=== PATIENT | female | born 1940 | race Caucasian/White ===

== ENCOUNTER 2019-03-18 09:46 | Inpatient (IN) | payer MEDICARE, OTHER ==
[~2019-03-18] VITALS: Ht 165.1 cm; Wt 96.3 kg
[2019-03-18] MEDS ORDERED: MACROBID100 MG ORAL (10:24)
[2019-03-18] MEDS ORDERED: COREG CR80 MG ORAL (10:24)
[2019-03-18] MEDS ORDERED: ACTOS45 MG ORAL (10:24)
[2019-03-18] MEDS ORDERED: LANTUS SOL100 UNIT/1 SUBQ (10:24)
[2019-03-18 10:42] LABS: APPEARANCE,URINE VERY CLOUDY; BILIRUBIN, URINE NEGATIVE (NEGATIVE); COLOR,URINE RED; GLUCOSE, URINE (UA) NEGATIVE (NEGATIVE); KETONES,URINE 1+ (NEGATIVE); LEUKOCYTE ESTERASE ,URINE 3+ (NEGATIVE); NITRITE,URINE NEGATIVE (NEGATIVE); PH,URINE 6.5 (4.5-8.0); PROTEIN,URINE 4+ (NEGATIVE); UROBILINOGEN,URINE NORMAL MG/DL (0.0-1.0)
[2019-03-18 11:49] LABS: BASOPHILS % (AUTO) 0.4 % (0.0-2.0); EOSINOPHILS % (AUTO) 0.6 % (0.0-3.0); HEMATOCRIT 25.5 % (37.0-47.0); HEMOGLOBIN 8.2 G/DL (12.0-16.0); LYMPHOCYTES % (AUTO) 32.3 % (20.0-45.0); MEAN CORPUSCULAR VOLUME 99 FL (80-99); NEUTROPHILS % (AUTO) 60.7 % (45.0-75.0); PLATELET COUNT 277 K/UL (150-450); RED BLOOD COUNT 2.59 M/UL (4.20-5.40); WHITE BLOOD COUNT 9.7 K/UL (4.8-10.8)
[2019-03-18 12:03] LABS: ANION GAP 9 mmol/L (5-15); BLOOD UREA NITROGEN 35 mg/dL (7-18); CALCIUM 9.2 MG/DL (8.5-10.1); CARBON DIOXIDE 24 MMOL/L (21-32); CHLORIDE 107 MMOL/L (98-107); CREATININE 2.3 MG/DL (0.55-1.30); POTASSIUM 4.4 MMOL/L (3.5-5.1); SODIUM 140 MMOL/L (136-145)
[2019-03-18 12:07] LABS: ALANINE AMINOTRANSFERASE 16 U/L (12-78); ALBUMIN 3.2 G/DL (3.4-5.0); ALBUMIN/GLOBULIN RATIO 0.7 (1.0-2.7); ALKALINE PHOSPHATASE 57 U/L (46-116); ASPARTATE AMINO TRANSFERASE 11 U/L (15-37); BILIRUBIN,TOTAL 0.3 MG/DL (0.2-1.0)
[2019-03-18 13:20] VITALS: BP 154/46
[2019-03-18 14:55] VITALS: BP 139/66
--- NOTE | 2019-03-18 15:06 | Emergency Room Report ---
History of Present Illness General Chief Complaint: Female Urogenital Problems Source: Patient Present Illness Allergies: Coded Allergies: No Known Allergies (Unverified , 03/18/19) Nursing Documentation-[facility] Past Medical History: No History, Except For Hx Hypertension: Yes Hx Diabetes: Yes Hx Neurological Problems: Yes - parkinson Physical Exam Vital Signs Date Time Temp Pulse Resp B/P (MAP) Pulse Ox O2 Delivery O2 Flow Rate FiO2 03/18/19 09:50 97.9 79 17 185/80 (115) 95 Room Air Medical Decision Making Diagnostic Impression: Primary Impression: Hematuria Additional Impressions: Urinary retention UTI (urinary tract infection) Bladder tumor MINDY (acute kidney injury) Anemia Laboratory Tests Test 03/18/19 10:15 03/18/19 11:20 Urine Color Red Urine Appearance Very cloudy Urine pH 6.5 (4.5-8.0) Urine Specific [place] 1.010 (1.005-1.035) Urine Protein 4+ (NEGATIVE) H Urine Glucose (UA) Negative (NEGATIVE) Urine Ketones 1+ (NEGATIVE) H Urine Blood 5+ (NEGATIVE) H Urine Nitrite Negative (NEGATIVE) Urine Bilirubin Negative (NEGATIVE) Urine Urobilinogen Normal MG/DL (0.0-1.0) Urine Leukocyte Esterase 3+ (NEGATIVE) H Urine RBC Tntc /HPF (0 - 2) H Urine WBC 30-40 /HPF (0 - 2) H Urine Squamous Epithelial Cells Few /LPF (NONE/OCC) Urine Bacteria Few /HPF (NONE) White Blood Count 9.7 K/UL (4.8-10.8) Red Blood Count 2.59 M/UL (4.20-5.40) L Hemoglobin 8.2 G/DL (12.0-16.0) L Hematocrit 25.5 % (37.0-47.0) L Mean Corpuscular Volume 99 FL (80-99) Mean Corpuscular Hemoglobin 31.8 PG (27.0-31.0) H Mean Corpuscular Hemoglobin Concent 32.3 G/DL (32.0-36.0) Red Cell Distribution Width 13.0 % (11.6-14.8) Platelet Count 277 K/UL (150-450) Mean Platelet Volume 10.4 FL (6.5-10.1) H Neutrophils (%) (Auto) 60.7 % (45.0-75.0) Lymphocytes (%) (Auto) 32.3 % (20.0-45.0) Monocytes (%) (Auto) 6.0 % (1.0-10.0) Eosinophils (%) (Auto) 0.6 % (0.0-3.0) Basophils (%) (Auto) 0.4 % (0.0-2.0) Prothrombin Time 10.5 SEC (9.30-11.50) Prothrombin Time INR 1.0 (0.9-1.1) PTT 25 SEC (23-33) Sodium Level 140 MMOL/L (136-145) Potassium Level 4.4 MMOL/L (3.5-5.1) Chloride Level 107 MMOL/L (98-107) Carbon Dioxide Level 24 MMOL/L (21-32) Anion Gap 9 mmol/L (5-15) Blood Urea Nitrogen 35 mg/dL (7-18) H Creatinine 2.3 MG/DL (0.55-1.30) H Estimate Glomerular Filtration Rate mL/min (>60) Glucose Level 127 MG/DL (74-106) H Calcium Level 9.2 MG/DL (8.5-10.1) Total Bilirubin 0.3 MG/DL (0.2-1.0) Aspartate Amino Transferase (AST) 11 U/L (15-37) L Alanine Aminotransferase (ALT) 16 U/L (12-78) Alkaline Phosphatase 57 U/L (46-116) Total Protein 7.5 G/DL (6.4-8.2) Albumin 3.2 G/DL (3.4-5.0) L Globulin 4.3 g/dL Albumin/Globulin Ratio 0.7 (1.0-2.7) L Last Vital Signs Date Time Temp Pulse Resp B/P (MAP) Pulse Ox O2 Delivery O2 Flow Rate FiO2 03/18/19 14:55 97.9 81 18 139/66 96 Room Air Referrals: NON PHYSICIAN (PCP) Roberta Loving DO Mar 18, 2019 15:06
[2019-03-18] MEDS ORDERED: cefTRIAXone 1 GM in D5W 55 ML IVPB ONE (15:15)
[2019-03-18 16:00] VITALS: BP 143/56
[2019-03-18 18:36] LABS: HEMATOCRIT 23.5 % (37.0-47.0); HEMOGLOBIN 7.9 G/DL (12.0-16.0); MEAN CORPUSCULAR VOLUME 98 FL (80-99); PLATELET COUNT 277 K/UL (150-450); RED BLOOD COUNT 2.39 M/UL (4.20-5.40); RED CELL DISTRIBUTION WIDTH 12.6 % (11.6-14.8); WHITE BLOOD COUNT 10.1 K/UL (4.8-10.8)
[2019-03-18] MEDS: Levemir Flexpen SUBQ SCH (21:00)
[2019-03-18] MEDS: NovoLOG Insulin Flexpen SUBQ SCH (21:00)
[2019-03-18] MEDS: Carvedilol 6.25mg Tab ORAL SCH (22:07)
[2019-03-19] MEDS ORDERED: NovoLOG Insulin Flexpen SUBQ SCH (06:30)
[2019-03-19] MEDS: NovoLOG Insulin Flexpen SUBQ SCH ×4 (06:30→20:55)
[2019-03-19 07:22] LABS: HEMATOCRIT 22.8 % (37.0-47.0); HEMOGLOBIN 7.5 G/DL (12.0-16.0); MEAN CORPUSCULAR VOLUME 98 FL (80-99); PLATELET COUNT 268 K/UL (150-450); RED BLOOD COUNT 2.32 M/UL (4.20-5.40); RED CELL DISTRIBUTION WIDTH 12.7 % (11.6-14.8); WHITE BLOOD COUNT 8.2 K/UL (4.8-10.8)
[2019-03-19 07:37] LABS: % IRON SATURATION 47 % (15-50); IRON 80 ug/dL (50-175); TOTAL IRON BINDING CAPACITY 170 ug/dL (250-450)
[2019-03-19 07:47] LABS: ALANINE AMINOTRANSFERASE 14 U/L (12-78); ALBUMIN 2.9 G/DL (3.4-5.0); ALBUMIN/GLOBULIN RATIO 0.7 (1.0-2.7); ALKALINE PHOSPHATASE 50 U/L (46-116); ANION GAP 11 mmol/L (5-15); ASPARTATE AMINO TRANSFERASE 9 U/L (15-37); BILIRUBIN,TOTAL 0.3 MG/DL (0.2-1.0); BLOOD UREA NITROGEN 31 mg/dL (7-18); CALCIUM 8.7 MG/DL (8.5-10.1); CARBON DIOXIDE 23 MMOL/L (21-32); CHLORIDE 109 MMOL/L (98-107); CREATININE 2.3 MG/DL (0.55-1.30); POTASSIUM 3.8 MMOL/L (3.5-5.1); SODIUM 143 MMOL/L (136-145)
[2019-03-19 08:00] VITALS: BP 145/68
[2019-03-19] MEDS: Carvedilol 6.25mg Tab ORAL SCH ×2 (09:35→20:45)
[2019-03-19 12:00] VITALS: BP 130/50
--- NOTE | 2019-03-19 13:00 | Consultation ---
DATE OF CONSULTATION: 03/19/2019 UROLOGY CONSULTATION ATTENDING/CONSULTING PHYSICIAN: Lopez Montalvo M.D. CHIEF COMPLAINT/HISTORY OF PRESENT ILLNESS: I was asked by Dr. Montalvo to evaluate this 78-year-old female regarding history of gross hematuria. Briefly, the patient has a history of gross hematuria, was started earlier in the week. She apparently saw Dr. Perea, for evaluation of the same and a Hernandez catheter was placed. The next day, the hematuria was continuous and as such, the patient proceeded to the emergency room here as Dr. Perea had instructed her to do so at their meeting. Dr. Perea has been out of town and unavailable and as such, I was asked to evaluate the patient. PAST MEDICAL HISTORY: 1. Hypertension. 2. Diabetes. 3. Hypothyroidism. 4. Parkinson disease. 5. Uterine fibroids. 6. Glaucoma. PAST SURGICAL HISTORY: 1. Uterine surgery for fibroids, NOS. 2. Glaucoma, eye surgery, NOS. MEDICATIONS: Please see the chart for current medications administration details. Briefly, the patient has been placed on ceftriaxone for antibiotic coverage. ALLERGIES: No known drug allergies. SOCIAL HISTORY: Unremarkable for tobacco, alcohol, or drug use. FAMILY HISTORY: Noncontributory. REVIEW OF SYSTEMS: A 14-system review of systems essentially unremarkable outside what is described above. PHYSICAL EXAMINATION: GENERAL: The patient is an elderly Romansh female, awake, alert, oriented x4, pleasant, no obvious distress. HEENT: NC/AT. EOMI. Oropharynx clear. NECK: Supple. CHEST: Within normal limits. ABDOMEN: Soft, obese, nontender, nondistended. EXTREMITIES: Warm and well perfused. No cyanosis, clubbing, or edema. BACK: No CVA tenderness to percussion. NEUROLOGIC: Grossly nonfocal. GENITOURINARY: Reveals a Hernandez catheter in place with bloody urine output. LABORATORY DATA: Sodium 143, potassium 3.8, chloride 109, bicarbonate 23, BUN 31, creatinine 2.3, glucose 117, calcium 8.7. LFTs within normal limits. PT 10.5, INR 1.0, PTT 25. White blood cell count 8.2, hematocrit 23, platelets 268. Urinalysis, specific gravity 1.010, pH 6.5. Dip test notable for 4+ protein, 1+ ketones, 5+ occult blood, and 3+ leukocyte esterase. Microanalysis with too numerous to count red and 30 to 40 white blood cells per high-power field and few bacteria seen. Urine culture, no growth preliminarily. Diagnostic imaging, none. ASSESSMENT AND PLAN: In summary, the patient is an 78-year-old female with a history of gross hematuria over the last several days. Physical exam reveals the same. Laboratory data is essentially unremarkable and urine culture is negative so far. She has been started on ceftriaxone for antibiotic coverage. There is no relevant diagnostic imaging. I am going to continue the patient on antibiotics for the time being. Additionally, I will order a noncontrast CT scan of the abdomen and pelvis. Due to the patient's renal insufficiency, this will help us to hopefully evaluate for potential source of the hematuria. Dr. Perea returns tomorrow and can resume care of the patient from that point. Thank you for allowing me to participate in the care of this nice lady. Please do not hesitate to contact me for any questions that you may further have regarding her care. I will see her with you as needed. Sarkis Paniagua M.D. DR: KIAN JOB#: [id number] CC:
--- NOTE | 2019-03-19 14:28 | Diagnostic Imaging Report ---
EXAM: CT Abdomen and Pelvis Without Intravenous Contrast CLINICAL HISTORY: BLD TECHNIQUE: Axial computed tomography images of the abdomen and pelvis without intravenous contrast. CTDI is 19.07 mGy and DLP is 1093 mGy-cm. One or more of the following dose reduction techniques were used: automated exposure control, adjustment of the mA and/or kV according to patient size, use of iterative reconstruction technique. COMPARISON: No relevant prior studies available. FINDINGS: Lung bases: 4 mm nodule right middle lobe. Heart: Cardiomegaly. ABDOMEN: Liver: Unremarkable Gallbladder and bile ducts: No calcified stones. No ductal dilation. Pancreas: Unremarkable. Spleen: Unremarkable. Adrenals: Unremarkable. Kidneys and ureters: Dilatation of the renal collecting systems and ureters. Low attenuation focus in the right kidney measuring 2.2 cm. Stomach and bowel: Colonic diverticula. PELVIS: Appendix: No findings to suggest acute appendicitis. Bladder: Under distended and thickened, irregular bladder with underlying mass lesion and/or hemorrhage/debris. Hernandez catheter. Reproductive: Unremarkable. ABDOMEN and PELVIS: Intraperitoneal space: Unremarkable. Bones/joints: No acute fracture. Soft tissues: Subcutaneous edema in the back. Vasculature: Unremarkable. No abdominal aortic aneurysm. Lymph nodes: No enlarged lymph nodes. IMPRESSION: Under distended and thickened, irregular bladder with underlying mass lesion and/or hemorrhage/debris. Further evaluation needed.
[2019-03-19] MEDS: cefTRIAXone 1 GM in D5W 55 ML IVPB SCH (15:11)
--- NOTE | 2019-03-19 16:09 | Consultation ---
Consult Note Consult Note asked to eval at the request of Dr Montalvo interviewed examined discussed with RN admitted from ER after was presented with Hematuria feels weak has chang chang bag bloody urine . Assessment/Plan Renal failure, Acute vs Chronic Hematuria Urinary retention UTI (urinary tract infection) Bladder tumor Anemia Uro eval Transfuse Kidney KATHI per orders Kasi Powell MD Mar 19, 2019 16:09
[2019-03-19] MEDS: Docusate 100mg cap ORAL SCH (17:48)
[2019-03-19 20:00] VITALS: BP 164/61
--- NOTE | 2019-03-19 20:17 | Diagnostic Imaging Report ---
EXAM: US Retroperitoneal Complete, Renal CLINICAL HISTORY: RENAL-A TECHNIQUE: Real-time ultrasound of the retroperitoneum (complete) with image documentation. COMPARISON: CT scan 03/19/19 FINDINGS: Right kidney: 13.0 x 4.6 x 6.7 cm. Marked hydronephrosis without evidence of renal calculi. Left kidney: 12.8 x 5.1 x 6.2 cm. No hydronephrosis. Bladder: The bladder is incompletely distended with a Hernandez catheter within. The bladder is not adequately evaluated. The bladder should be evaluated with a full bladder on ultrasound. Alternatively cystoscopy recommended. IMPRESSION: Bilateral hydronephrosis as seen on the CT with no evidence for renal calculi The bladder is not adequately evaluated. The bladder needs to be evaluated with a full bladder on ultrasound. Alternatively cystoscopy is recommended
[2019-03-19] MEDS: Levemir Flexpen SUBQ SCH (20:55)
[2019-03-19] MEDS ORDERED: Vitamin B12 1000mcg/ml Inj IM ONE (22:00)
--- NOTE | 2019-03-19 22:45 | History and Physical Report ---
DATE OF ADMISSION: 03/18/2019 REASON FOR ADMISSION: Jerson hematuria with severe anemia. HISTORY OF PRESENT ILLNESS: This pleasant [place]ij[place] female, was seen by her urologist several days ago and noted to have hematuria. A catheter was placed and further diagnostic studies planed. Today, she came to the emergency room because of worsening hematuria that has been unremitting. She has not had any nausea, vomiting, or abdominal pain. No dizziness. Because of the severity of her anemia, hospitalization is being initiated. PAST MEDICAL HISTORY: Includes hypertension, type 2 diabetes mellitus, history of uterine fibroids, Parkinson disease, hypothyroidism, glaucoma, status post myomectomy. MEDICATIONS: Prior to admission, reviewed and reconciled. ALLERGIES: None known. SOCIAL HISTORY: Negative for smoking, alcohol, or substance abuse. FAMILY HISTORY: Noncontributory. REVIEW OF SYSTEMS: No fevers or chills. No dysuria or abdominal pain. No history of asthma or abnormal blood clotting. No history of heart failure, heart attack, or irregular heart beat. No history of seizure or stroke. Her diabetes is managed with oral therapy. She is on thyroid replacement. She does not recall her cholesterol level. She does not take any medications for Parkinson at this time. The diagnosis is not clear. PHYSICAL EXAMINATION: GENERAL: Moderately obese, no acute distress. VITAL SIGNS: Blood pressure 139/66, pulse 81, respiratory rate 18, afebrile, and room air oxygen saturation 96%. HEENT: Conjunctivae pink. Sclerae are anicteric. Oropharynx clear. Mucous membranes moist. NECK: Supple. Jugular venous pressure normal. LUNGS: Clear. No breast masses. CARDIAC: Regular rhythm and rate. Normal S1 and S2 with no murmur. There is a fourth heart sound. ABDOMEN: Soft and nontender. No guarding. No rebound. Hernandez catheter is draining red urine. EXTREMITIES: Without clubbing, cyanosis, or edema. NEUROLOGIC: Nonfocal with no obvious tremor. LABORATORY DATA: Sodium 140, potassium 4.4, bicarbonate 24, BUN 35, creatinine 2.3, and glucose 127. White count 9.7, hemoglobin 8.2, and platelet count is 277,000. EKG with sinus rhythm and no acute ____ abnormalities. A CAT scan of the abdomen and pelvis was performed and notable for bladder mass with distended irregular bladder wall. IMPRESSION: 1. Severe anemia due to hematuria. 2. Bladder mass, possible tumor. 3. Renal failure, acute versus chronic. 4. History of type 2 diabetes mellitus. 5. History of hypertension. PLAN: 1. Inpatient hospital stay. 2. Hydration. 3. Hernandez catheter. 4. Serial hemoglobin, transfuse if less than 8 g with ongoing bleeding. 5. Nasal oxygen. 6. Renal ultrasound. 7. Follow up renal studies, metabolic profile, iron panel, urologic followup, and chest x-ray. 8. Insulin coverage by sliding scale. Lopez Mnotalvo M.D. DR: ESTEPHANIA JOB#: [id number] CC:
--- NOTE | 2019-03-19 22:45 | Progress Note ---
DATE: 03/19/2019 INTERNAL MEDICINE PROGRESS NOTE SUBJECTIVE: The patient with no complaints. Denies nausea, vomiting, or abdominal pain. She continues to have hematuria. Urologic consultation was noted. She remains on IV fluids. OBJECTIVE: VITAL SIGNS: Blood pressure 130/50, heart rate 83, respiratory rate 18, temperature 99.3. NECK: Supple. CARDIAC: Regular. Normal S1, S2 with no new murmur. LUNGS: Clear. ABDOMEN: Soft, nontender. EXTREMITIES: No edema. LABORATORY DATA: White count 8.2, hemoglobin 7.5. BUN 31, creatinine 2.3. B12 of 223. Iron panel normal. IMPRESSION: 1. Hematuria. 2. Bladder mass. 3. Severe anemia. 4. Moderate protein-calorie malnutrition. 5. B12 deficiency. 6. Low TSH suggestive of abnormal thyroid function. 7. History of diabetes mellitus. 8. Renal failure, unchanged with hydration. PLAN: 1. Continue cautious hydration. 2. Renal consult. 3. Transfuse packed red blood cells. 4. B12 supplement. 5. Protein supplement. 6. DVT prophylaxis with SCDs. 7. Await urologic intervention for diagnostic tissue. Lopez Montalvo M.D. : Marianela JOB#: [id number] CC:
[2019-03-20] VITALS: BP 144/60
[2019-03-20 04:00] VITALS: BP 158/67
[2019-03-20] MEDS: NovoLOG Insulin Flexpen SUBQ SCH ×4 (06:30→20:51)
[2019-03-20 07:53] LABS: BASOPHILS % (AUTO) 0.7 % (0.0-2.0); EOSINOPHILS % (AUTO) 2.5 % (0.0-3.0); HEMOGLOBIN 8.8 G/DL (12.0-16.0); LYMPHOCYTES % (AUTO) 40.1 % (20.0-45.0); MEAN CORPUSCULAR VOLUME 96 FL (80-99); NEUTROPHILS % (AUTO) 51.6 % (45.0-75.0); PLATELET COUNT 257 K/UL (150-450); RED BLOOD COUNT 2.69 M/UL (4.20-5.40); RED CELL DISTRIBUTION WIDTH 13.6 % (11.6-14.8); WHITE BLOOD COUNT 8.8 K/UL (4.8-10.8)
[2019-03-20 08:00] VITALS: BP 169/69
[2019-03-20] MEDS: Docusate 100mg cap ORAL SCH ×2 (08:37→17:12)
[2019-03-20] MEDS: Carvedilol 6.25mg Tab ORAL SCH (08:38)
[2019-03-20 09:15] LABS: ALANINE AMINOTRANSFERASE 13 U/L (12-78); ALBUMIN 2.9 G/DL (3.4-5.0); ALBUMIN/GLOBULIN RATIO 0.7 (1.0-2.7); ALKALINE PHOSPHATASE 50 U/L (46-116); ANION GAP 10 mmol/L (5-15); ASPARTATE AMINO TRANSFERASE 10 U/L (15-37); BILIRUBIN,TOTAL 0.3 MG/DL (0.2-1.0); BLOOD UREA NITROGEN 26 mg/dL (7-18); CALCIUM 8.7 MG/DL (8.5-10.1); CARBON DIOXIDE 24 MMOL/L (21-32); CHLORIDE 111 MMOL/L (98-107); CREATININE 2.1 MG/DL (0.55-1.30); PHOSPHORUS 4.2 MG/DL (2.5-4.9); POTASSIUM 3.7 MMOL/L (3.5-5.1); SODIUM 145 MMOL/L (136-145)
--- NOTE | 2019-03-20 09:15 | Diagnostic Imaging Report ---
EXAM: XR Chest, 2 Views CLINICAL HISTORY: TACHYP TECHNIQUE: Frontal and lateral views of the chest. COMPARISON: No relevant prior studies available. FINDINGS: Lungs: Hypoventilatory lungs. Mild interstitial prominence. No consolidation. Pleural space: Unremarkable. No pneumothorax. Heart: Heart size upper limits normal. Mediastinum: Unremarkable. Bones/joints: Unremarkable. IMPRESSION: Hypoventilatory lungs. Mild interstitial prominence.
[2019-03-20 12:00] VITALS: BP 111/67
[2019-03-20] MEDS ORDERED: Lisinopril 10mg tab ORAL SCH (13:15)
[2019-03-20] MEDS ORDERED: HydrALAZINE 25mg tab ORAL PRN (13:30)
--- NOTE | 2019-03-20 13:30 | Nephrology Progress Note ---
Assessment/Plan Problem List: (1) Renal failure (ARF), acute on chronic (2) Diabetic nephropathy (3) Bladder tumor (4) Hematuria (5) Anemia (6) Urinary retention (7) Elevated troponin I level Assessment Renal failure, Acute vs Chronic Hematuria Urinary retention UTI (urinary tract infection) Bladder tumor Anemia Plan Transfused- Cr lower- Uro eval noted Kidney KATHI noted per orders start Lopressor and Norvasc and PRN Hydralazine Hold Lisinopril in view of elevated Cr KATHI: Bilateral hydronephrosis as seen on the CT with no evidence for renal calculi The bladder is not adequately evaluated. The bladder needs to be evaluated with a full bladder on ultrasound. Alternatively cystoscopy is recommended Subjective ROS Limited/Unobtainable: No Constitutional: Reports: malaise Objective Objective Last 24 Hour Vital Signs Date Time Temp Pulse Resp B/P (MAP) Pulse Ox O2 Delivery O2 Flow Rate FiO2 03/20/19 12:00 97.5 78 18 111/67 (82) 96 03/20/19 12:00 Room Air 03/20/19 08:38 75 169/69 03/20/19 08:00 Room Air 03/20/19 08:00 97.7 75 20 169/69 (102) 96 03/20/19 04:00 Room Air 03/20/19 04:00 98.4 72 18 158/67 (97) 95 03/20/19 00:00 Room Air 03/20/19 00:00 98.4 76 18 144/60 (88) 96 03/19/19 20:45 84 164/61 03/19/19 20:00 Room Air 03/19/19 20:00 97.2 84 18 164/61 (95) 95 03/19/19 16:00 Room Air Intake and Output 03/19/19 03/20/19 19:00 07:00 Intake Total 1590 ml 500 ml Output Total 2200 ml Balance -610 ml 500 ml Intake Oral 480 ml IV Total 1110 ml 500 ml Output Urine Total 2200 ml # Voids 2 # Bowel Movements 1 Laboratory Tests 03/20/19 06:32: White Blood Count 8.8, Red Blood Count 2.69L, Hemoglobin 8.8L, Hematocrit 26.0L , Mean Corpuscular Volume 96, Mean Corpuscular Hemoglobin 32.7H, Mean Corpuscular Hemoglobin Concent 33.9, Red Cell Distribution Width 13.6, Platelet Count 257, Mean Platelet Volume 10.5H, Neutrophils (%) (Auto) 51.6, Lymphocytes (%) (Auto) 40.1, Monocytes (%) (Auto) 5.0, Eosinophils (%) (Auto) 2.5, Basophils (%) (Auto) 0.7, Sodium Level 145, Potassium Level 3.7, Chloride Level 111H, Carbon Dioxide Level 24, Anion Gap 10, Blood Urea Nitrogen 26H, Creatinine 2.1H, Estimat Glomerular Filtration Rate , Glucose Level 83, Uric Acid 5.4, Calcium Level 8.7, Phosphorus Level 4.2, Magnesium Level 1.6L, Total Bilirubin 0.3, Aspartate Amino Transf (AST/SGOT) 10L, Alanine Aminotransferase ( ALT/SGPT) 13, Alkaline Phosphatase 50, C-Reactive Protein, Quantitative 0.7, Pro -B-Type Natriuretic Peptide 1011H, Total Protein 7.1, Albumin 2.9L, Globulin 4.2 , Albumin/Globulin Ratio 0.7L, Thyroid Stimulating Hormone (TSH) 0.139L Height (Feet): 5 Height (Inches): 5.00 Weight (Pounds): 202 General Appearance: no apparent distress Cardiovascular: normal rate Respiratory/Chest: decreased breath sounds Abdomen: distended Genitourinary/Rectal: other - chang ...Bag... Bloody Kasi Powell MD Mar 20, 2019 13:30
[2019-03-20] MEDS ORDERED: Vitamin B12 1000mcg/ml Inj SUBQ SCH (14:00)
[2019-03-20] MEDS: cefTRIAXone 1 GM in D5W 55 ML IVPB SCH (16:55)
[2019-03-20] MEDS: Metoprolol 25mg tab ORAL SCH (20:50)
[2019-03-20] MEDS: Levemir Flexpen SUBQ SCH (20:52)
[2019-03-21] VITALS: BP 148/53
[2019-03-21 04:00] VITALS: BP 155/73
[2019-03-21] MEDS: NovoLOG Insulin Flexpen SUBQ SCH ×4 (06:20→21:23)
[2019-03-21 07:11] LABS: BASOPHILS % (AUTO) 0.6 % (0.0-2.0); EOSINOPHILS % (AUTO) 2.2 % (0.0-3.0); HEMATOCRIT 27.3 % (37.0-47.0); HEMOGLOBIN 9.1 G/DL (12.0-16.0); LYMPHOCYTES % (AUTO) 40.6 % (20.0-45.0); MEAN CORPUSCULAR VOLUME 97 FL (80-99); MONOCYTES % (AUTO) 4.5 % (1.0-10.0); NEUTROPHILS % (AUTO) 52.2 % (45.0-75.0); PLATELET COUNT 262 K/UL (150-450); RED BLOOD COUNT 2.82 M/UL (4.20-5.40); RED CELL DISTRIBUTION WIDTH 12.9 % (11.6-14.8); WHITE BLOOD COUNT 9.7 K/UL (4.8-10.8)
[2019-03-21 07:37] LABS: ALANINE AMINOTRANSFERASE 16 U/L (12-78); ALBUMIN 2.9 G/DL (3.4-5.0); ALBUMIN/GLOBULIN RATIO 0.7 (1.0-2.7); ALKALINE PHOSPHATASE 51 U/L (46-116); ANION GAP 11 mmol/L (5-15); ASPARTATE AMINO TRANSFERASE 12 U/L (15-37); BILIRUBIN,TOTAL 0.3 MG/DL (0.2-1.0); BLOOD UREA NITROGEN 23 mg/dL (7-18); CALCIUM 8.9 MG/DL (8.5-10.1); CARBON DIOXIDE 24 MMOL/L (21-32); CHLORIDE 108 MMOL/L (98-107); POTASSIUM 3.7 MMOL/L (3.5-5.1); SODIUM 143 MMOL/L (136-145)
[2019-03-21 07:44] LABS: CHOLESTEROL 184 MG/DL (< 200); HDL CHOLESTEROL 32 MG/DL (40-60); PHOSPHORUS 4.2 MG/DL (2.5-4.9); TRIGLYCERIDES 110 MG/DL (30-150)
[2019-03-21 08:00] VITALS: BP 157/69
[2019-03-21] MEDS: Metoprolol 25mg tab ORAL SCH ×2 (08:37→21:19)
[2019-03-21] MEDS: Docusate 100mg cap ORAL SCH ×3 (08:40→17:45)
[2019-03-21] MEDS ORDERED: Lisinopril 10mg tab ORAL SCH (09:00)
[2019-03-21 11:56] VITALS: BP 155/62
--- NOTE | 2019-03-21 13:43 | Nephrology Progress Note ---
Assessment/Plan Problem List: (1) Renal failure (ARF), acute on chronic (2) Diabetic nephropathy (3) Bladder tumor (4) Hematuria (5) Anemia (6) Urinary retention (7) Elevated troponin I level Assessment Renal failure, Acute vs Chronic Hematuria Urinary retention UTI (urinary tract infection) Bladder tumor Anemia Plan Transfused- Cr lower- Uro eval noted Kidney KATHI noted per orders start Lopressor and Norvasc and PRN Hydralazine Hold Lisinopril in view of elevated Cr- adjust BP meds KATHI: Bilateral hydronephrosis as seen on the CT with no evidence for renal calculi The bladder is not adequately evaluated. The bladder needs to be evaluated with a full bladder on ultrasound. Alternatively cystoscopy is recommended Subjective ROS Limited/Unobtainable: No Constitutional: Reports: malaise Objective Objective Last 24 Hour Vital Signs Date Time Temp Pulse Resp B/P (MAP) Pulse Ox O2 Delivery O2 Flow Rate FiO2 03/21/19 11:56 98.1 68 18 155/62 (93) 96 03/21/19 09:00 Room Air 03/21/19 08:37 72 157/69 03/21/19 08:37 72 157/69 03/21/19 08:00 98.1 72 18 157/69 (98) 99 03/21/19 04:00 97.8 73 18 155/73 (100) 94 03/21/19 00:00 97.2 73 18 148/53 (84) 94 03/20/19 21:00 Room Air 03/20/19 20:50 72 151/53 03/20/19 16:00 Room Air 03/20/19 14:31 75 129/69 03/20/19 13:56 111/67 Intake and Output 03/20/19 03/21/19 19:00 07:00 Intake Total 1520 ml 240 ml Output Total 1000 ml 2050 ml Balance 520 ml -1810 ml Intake Oral 360 ml 240 ml IV Total 1160 ml Output Urine Total 1000 ml 2050 ml Laboratory Tests 03/21/19 06:03: White Blood Count 9.7, Red Blood Count 2.82L, Hemoglobin 9.1L, Hematocrit 27.3L , Mean Corpuscular Volume 97, Mean Corpuscular Hemoglobin 32.2H, Mean Corpuscular Hemoglobin Concent 33.3, Red Cell Distribution Width 12.9, Platelet Count 262, Mean Platelet Volume 10.9H, Neutrophils (%) (Auto) 52.2, Lymphocytes (%) (Auto) 40.6, Monocytes (%) (Auto) 4.5, Eosinophils (%) (Auto) 2.2, Basophils (%) (Auto) 0.6, Sodium Level 143, Potassium Level 3.7, Chloride Level 108H, Carbon Dioxide Level 24, Anion Gap 11, Blood Urea Nitrogen 23H, Creatinine 2.0H, Estimat Glomerular Filtration Rate , Glucose Level 97, Uric Acid 5.5, Calcium Level 8.9, Phosphorus Level 4.2, Magnesium Level 1.9, Total Bilirubin 0.3, Aspartate Amino Transf (AST/SGOT) 12L, Alanine Aminotransferase ( ALT/SGPT) 16, Alkaline Phosphatase 51, Total Protein 7.1, Albumin 2.9L, Globulin 4.2, Albumin/Globulin Ratio 0.7L, Triglycerides Level 110, Cholesterol Level 184, LDL Cholesterol 123H, HDL Cholesterol 32L, Cholesterol/HDL Ratio 5.8H Height (Feet): 5 Height (Inches): 5.00 Weight (Pounds): 202 General Appearance: no apparent distress Cardiovascular: normal rate Respiratory/Chest: decreased breath sounds Abdomen: soft Genitourinary/Rectal: other - urine bag clear from blood Objective no change Kasi Powell MD Mar 21, 2019 13:43
[2019-03-21 15:55] VITALS: BP 159/61
[2019-03-21] MEDS: cefTRIAXone 1 GM in D5W 55 ML IVPB SCH (16:45)
[2019-03-21 20:00] VITALS: BP 157/65
[2019-03-21] MEDS: Epoetin Alfa-EPBX (NON ESRD)10,000 unit/ml vial SUBQ SCH (21:19)
[2019-03-21] MEDS: Levemir Flexpen SUBQ SCH (21:22)
[2019-03-22] VITALS (7 sets, daily range): BP systolic 134–166; BP diastolic 56–70
[2019-03-22] MEDS: NovoLOG Insulin Flexpen SUBQ SCH ×4 (06:28→21:00)
[2019-03-22] MEDS: Metoprolol 25mg tab ORAL SCH ×2 (09:20→21:25)
[2019-03-22] MEDS: Docusate 100mg cap ORAL SCH ×3 (09:20→17:09)
[2019-03-22 09:52] LABS: BASOPHILS % (AUTO) 0.4 % (0.0-2.0); EOSINOPHILS % (AUTO) 1.6 % (0.0-3.0); HEMATOCRIT 29.2 % (37.0-47.0); HEMOGLOBIN 9.8 G/DL (12.0-16.0); LYMPHOCYTES % (AUTO) 39.9 % (20.0-45.0); MEAN CORPUSCULAR VOLUME 96 FL (80-99); MONOCYTES % (AUTO) 4.4 % (1.0-10.0); NEUTROPHILS % (AUTO) 53.7 % (45.0-75.0); PLATELET COUNT 322 K/UL (150-450); RED BLOOD COUNT 3.05 M/UL (4.20-5.40); WHITE BLOOD COUNT 10.5 K/UL (4.8-10.8)
[2019-03-22] MEDS: cefTRIAXone 1 GM in D5W 55 ML IVPB SCH (15:03)
--- NOTE | 2019-03-22 15:40 | Nephrology Progress Note ---
Assessment/Plan Problem List: (1) Renal failure (ARF), acute on chronic (2) Diabetic nephropathy (3) Bladder tumor (4) Hematuria (5) Anemia (6) Urinary retention (7) Elevated troponin I level Assessment Renal failure, Acute vs Chronic Hematuria Urinary retention UTI (urinary tract infection) Bladder tumor Anemia Plan no labs today Transfused- Cr lower- Uro eval noted Kidney KATHI noted per orders start Lopressor and Norvasc and PRN Hydralazine Hold Lisinopril in view of elevated Cr- adjust BP meds KATHI: Bilateral hydronephrosis as seen on the CT with no evidence for renal calculi The bladder is not adequately evaluated. The bladder needs to be evaluated with a full bladder on ultrasound. Alternatively cystoscopy is recommended Subjective ROS Limited/Unobtainable: No Objective Objective Last 24 Hour Vital Signs Date Time Temp Pulse Resp B/P (MAP) Pulse Ox O2 Delivery O2 Flow Rate FiO2 03/22/19 12:00 97.8 72 20 146/58 (87) 96 03/22/19 09:20 72 148/68 03/22/19 09:20 72 148/68 03/22/19 09:00 Room Air 03/22/19 08:00 97.6 72 20 148/68 (94) 95 03/22/19 04:00 98.6 74 18 166/59 (94) 99 03/22/19 00:00 97.8 78 19 136/70 (92) 95 03/21/19 21:19 74 157/65 03/21/19 21:00 Room Air 03/21/19 20:00 97.5 74 18 157/65 (95) 95 03/21/19 18:13 72 159/61 03/21/19 15:55 98.2 72 18 159/61 (93) 96 Intake and Output 03/21/19 03/22/19 19:00 07:00 Intake Total 1070 ml 900 ml Output Total 2200 ml 1700 ml Balance -1130 ml -800 ml Intake Oral 360 ml IV Total 710 ml 900 ml Output Urine Total 2200 ml 1700 ml Laboratory Tests 03/22/19 09:30: White Blood Count 10.5, Red Blood Count 3.05L, Hemoglobin 9.8L, Hematocrit 29.2L , Mean Corpuscular Volume 96, Mean Corpuscular Hemoglobin 32.2H, Mean Corpuscular Hemoglobin Concent 33.6, Red Cell Distribution Width 13.0, Platelet Count 322, Mean Platelet Volume 10.4H, Neutrophils (%) (Auto) 53.7, Lymphocytes (%) (Auto) 39.9, Monocytes (%) (Auto) 4.4, Eosinophils (%) (Auto) 1.6, Basophils (%) (Auto) 0.4 Height (Feet): 5 Height (Inches): 5.00 Weight (Pounds): 202 General Appearance: no apparent distress Objective no change Kasi Powell MD Mar 22, 2019 15:40
--- NOTE | 2019-03-22 16:56 | Progress Note ---
DATE: 03/21/2019 CARDIOLOGY AND INTERNAL MEDICINE PROGRESS NOTE SUBJECTIVE: Bleeding continues. Urology followup pending. Hemoglobin has remained stable overnight of 9.1. She received a unit of packed red blood cells since admission. OBJECTIVE: VITAL SIGNS: Blood pressure 157/65, pulse 74, and respiratory rate 18. LUNGS: Clear. CARDIAC: Regular. ABDOMEN: Soft. EXTREMITIES: No edema. LABORATORY DATA: White count 9.7 and hemoglobin 9.1. Potassium 3.7, magnesium 1.9, BUN 23, and creatinine 2.0. Total cholesterol 184 and HDL 32. IMPRESSION: 1. Bladder tumor with hematuria. 2. Anemia. 3. Acute on chronic renal failure. 4. Dyslipidemia. 5. Type 2 diabetes mellitus. 6. Chronic kidney disease. 7. B12 deficiency. PLAN: 1. Continue current management. Awaiting urologic followup for definitive care plan. 2. Vitamin supplements. Lopez Montalvo M.D. DR: ESTELLA JOB#: [id number] CC:
[2019-03-22] MEDS: Levemir Flexpen SUBQ SCH (21:00)
--- NOTE | 2019-03-22 21:15 | Consultation ---
DATE OF CONSULTATION: 03/22/2019 CONSULTING PHYSICIAN: Jose Perea M.D. REFERRING PHYSICIAN: Lopez Montalvo M.D. REASON FOR CONSULTATION: Continuous gross hematuria. HISTORY OF PRESENT ILLNESS: The patient is a very pleasant lady that was admitted to the hospital with gross hematuria. She had a Hernandez catheter placed, the bladder was irrigated. CT urogram showed irregular bladder with possible bladder tumor. She has been having episodes of hematuria since she received blood transfusions, her last hematocrit is 29. PAST MEDICAL HISTORY: Significant for diabetes. FAMILY HISTORY: Reviewed and is in the chart. MEDICATIONS: Reviewed and is in the chart. PHYSICAL EXAMINATION: VITAL SIGNS: She is currently afebrile. Vital signs are stable. NEUROLOGIC: Intact. LUNGS: Clear to auscultation. CARDIOVASCULAR: Regular rate and rhythm. ABDOMEN: Soft, nontender, slightly distended in the suprapubic area. GENITOURINARY: Hernandez catheter is in place. Some small clots and red color urine coming out to the Hernandez bag. LABORATORY DATA: Last hematocrit was 29. Creatinine is 1.3. ASSESSMENT AND PLANNING: The patient has continuous hematuria, possible bladder tumor, considering the fact that she already received blood transfusion, continues to bleed. I recommended to take her to the operating room tomorrow emergently to perform the bladder inspection and possible TURBT and retrograde pyelogram. I will ask Dr. Montalvo to do preop check. Jose Perea M.D. DR: RITA JOB#: [id number] CC:
[2019-03-23] VITALS (14 sets, daily range): BP systolic 130–175; BP diastolic 60–80
[2019-03-23] MEDS: D5NS 1,000 ML IV SCH ×2 (01:28→13:50)
--- NOTE | 2019-03-23 02:00 | Progress Note ---
DATE: 03/22/2019 CARDIOLOGY PROGRESS NOTE SUBJECTIVE: The patient without new complaints. Gross hematuria persists. Hemoglobin remained stable following a unit of packed red blood cells several days ago. Urology consultation noted. Plans for bladder inspection, TURBT, and retrograde pyelogram is noted. OBJECTIVE: VITAL SIGNS: Blood pressure 146/58, pulse 72, respirations 20. LUNGS: Clear. CARDIAC: Regular. Normal S1, S2. ABDOMEN: Soft. EXTREMITIES: No edema. PLAN: Stable for urologic procedure from cardiovascular standpoint without any significantly increased cardiopulmonary risk under general anesthesia. The patient will remain on empiric antibiotics. IV fluids will be adjusted while she is NPO and insulin by sliding scale continued. Postoperative care will include closest monitoring of respiratory parameters, blood counts, and DVT prophylaxis as well as glucose monitoring. Lopez Montalvo M.D. DR: SHARON JOB#: [id number] CC:
[2019-03-23] MEDS: NovoLOG Insulin Flexpen SUBQ SCH ×4 (06:04→21:46)
[2019-03-23 06:57] LABS: BASOPHILS % (AUTO) 0.6 % (0.0-2.0); EOSINOPHILS % (AUTO) 1.7 % (0.0-3.0); HEMATOCRIT 29.1 % (37.0-47.0); HEMOGLOBIN 9.8 G/DL (12.0-16.0); LYMPHOCYTES % (AUTO) 39.2 % (20.0-45.0); MEAN CORPUSCULAR VOLUME 97 FL (80-99); MONOCYTES % (AUTO) 6.7 % (1.0-10.0); NEUTROPHILS % (AUTO) 51.9 % (45.0-75.0); PLATELET COUNT 314 K/UL (150-450); WHITE BLOOD COUNT 8.9 K/UL (4.8-10.8)
[2019-03-23 07:51] LABS: ALANINE AMINOTRANSFERASE 14 U/L (12-78); ALBUMIN/GLOBULIN RATIO 0.7 (1.0-2.7); ALKALINE PHOSPHATASE 58 U/L (46-116); ANION GAP 11 mmol/L (5-15); ASPARTATE AMINO TRANSFERASE 12 U/L (15-37); BILIRUBIN,TOTAL < 0.1 MG/DL (0.2-1.0); BLOOD UREA NITROGEN 21 mg/dL (7-18); CALCIUM 9.2 MG/DL (8.5-10.1); CARBON DIOXIDE 26 MMOL/L (21-32); CHLORIDE 107 MMOL/L (98-107); CREATININE 1.7 MG/DL (0.55-1.30); POTASSIUM 4.3 MMOL/L (3.5-5.1); SODIUM 144 MMOL/L (136-145)
[2019-03-23] MEDS: Docusate 100mg cap ORAL SCH ×3 (09:00→17:08)
[2019-03-23] MEDS: Metoprolol 25mg tab ORAL SCH ×2 (09:00→21:42)
[2019-03-23] MEDS ORDERED: LR 1000ml 1,000 ML IVLG SCH (11:25)
[2019-03-23] MEDS ORDERED: Metoclopramide 10mg/2ml Inj IVP PRN (11:30)
[2019-03-23] MEDS ORDERED: DiphenhydrAMINE 50mg/ml Inj IVP PRN (11:30)
[2019-03-23] MEDS ORDERED: Ketorolac 30mg Inj IV PRN ×2 (11:30)
[2019-03-23] MEDS ORDERED: LORazepam Inj 2mg/ml 1ml IV PRN (11:30)
[2019-03-23] MEDS ORDERED: Acetaminophen (Non formulary) 100 ML IV ONE (11:30)
[2019-03-23] MEDS ORDERED: Midazolam 2mg/2ml Inj IVP PRN (11:30)
[2019-03-23] MEDS ORDERED: fentaNYL 100 mcg/2 mL IV PRN (11:30)
[2019-03-23] MEDS ORDERED: Labetalol 5mg/ml 20ml vial IV PRN (11:30)
[2019-03-23] MEDS ORDERED: Meperidine 50mg/ml Inj(FOR RIGORS ONLY) IVP PRN (11:30)
[2019-03-23] MEDS ORDERED: oxyCODONE HCL/Acetaminophen 5/325mg ORAL PRN (11:30)
[2019-03-23] MEDS ORDERED: HYDROcodone/Acetamin 7.5/325 tab ORAL PRN (11:30)
[2019-03-23] MEDS ORDERED: HYDROcodone/Acetamin 5/325 tab ORAL PRN ×2 (11:30→14:50)
[2019-03-23] MEDS ORDERED: Atropine Sulfate 0.4mg/ml inj IVP PRN (11:30)
[2019-03-23] MEDS ORDERED: Hydromorphone 0.5mg/0.5ml inj IVP PRN (11:30)
--- NOTE | 2019-03-23 11:30 | Anethesia Preoperative Eval ---
Anesthesia Pre-op PMH/ROS General Date of Evaluation: Mar 23, 2019 Time of Evaluation: 12:53 Anesthesiologist: Christin ASA Score: ASA 3 Mallampati Score Class I : Soft palate, uvula, fauces, pillars visible Class II: Soft palate, uvula, fauces visible Class III: Soft palate, base of uvula visible Class IV: Only hard plate visible Mallampati Classification: Class III Surgeon: Eliazar Diagnosis: Bladder Tumor Surgical Procedure: TURBT Anesthesia History: none Family History: no anesthesia problems Allergies: Coded Allergies: No Known Allergies (Unverified , 03/18/19) Medications: see eMAR Patient NPO?: Yes NPO Date: Mar 23, 2019 NPO Time: 1200 Past Medical History Cardiovascular: Reports: HTN Neurologic/Psychiatric: Reports: other - Parkinsons Disease Endocrine: Reports: DM HEENT: Reports: glaucoma Hematology/Immune: Reports: anemia Other: obesity - BMI 37 Anesthesia Pre-op Phys. Exam Physician Exam Last Vital Signs Date Time Temp Pulse Resp B/P (MAP) Pulse Ox O2 Delivery O2 Flow Rate FiO2 03/23/19 09:00 76 140/68 03/23/19 09:00 Room Air 03/23/19 07:57 98.0 18 93 Constitutional: NAD Neurologic: CN 2-12 intact Cardiovascular: RRR Respiratory: CTA Gastrointestinal: S/NT/ND Airway Exam Mallampati Score: Class III MO: limited ROM: limited Teeth: missing Anesthesia Pre-op A/P Labs Hematology Test 03/23/19 06:08 White Blood Count 8.9 K/UL (4.8-10.8) Red Blood Count 3.00 M/UL (4.20-5.40) L Hemoglobin 9.8 G/DL (12.0-16.0) L Hematocrit 29.1 % (37.0-47.0) L Mean Corpuscular Volume 97 FL (80-99) Mean Corpuscular Hemoglobin 32.6 PG (27.0-31.0) H Mean Corpuscular Hemoglobin Concent 33.6 G/DL (32.0-36.0) Red Cell Distribution Width 13.0 % (11.6-14.8) Platelet Count 314 K/UL (150-450) Mean Platelet Volume 10.9 FL (6.5-10.1) H Neutrophils (%) (Auto) 51.9 % (45.0-75.0) Lymphocytes (%) (Auto) 39.2 % (20.0-45.0) Monocytes (%) (Auto) 6.7 % (1.0-10.0) Eosinophils (%) (Auto) 1.7 % (0.0-3.0) Basophils (%) (Auto) 0.6 % (0.0-2.0) Coagulation Test 03/23/19 06:08 Prothrombin Time 10.7 SEC (9.30-11.50) Prothromb Time International Ratio 1.0 (0.9-1.1) Activated Partial Thromboplast Time 25 SEC (23-33) Chemistry Test 03/23/19 06:08 Sodium Level 144 MMOL/L (136-145) Potassium Level 4.3 MMOL/L (3.5-5.1) Chloride Level 107 MMOL/L (98-107) Carbon Dioxide Level 26 MMOL/L (21-32) Anion Gap 11 mmol/L (5-15) Blood Urea Nitrogen 21 mg/dL (7-18) H Creatinine 1.7 MG/DL (0.55-1.30) H Estimat Glomerular Filtration Rate mL/min (>60) Glucose Level 179 MG/DL (74-106) H Calcium Level 9.2 MG/DL (8.5-10.1) Total Bilirubin < 0.1 MG/DL (0.2-1.0) L Aspartate Amino Transf (AST/SGOT) 12 U/L (15-37) L Alanine Aminotransferase (ALT/SGPT) 14 U/L (12-78) Alkaline Phosphatase 58 U/L (46-116) Total Protein 7.4 G/DL (6.4-8.2) Albumin 3.0 G/DL (3.4-5.0) L Globulin 4.4 g/dL Albumin/Globulin Ratio 0.7 (1.0-2.7) L Risk Assessment & Plan Assessment: ASA 3 Plan: GA, SED Status Change Before Surgery: No Pre-Antibiotics Dru Gram Ancef IV Given Within 1 Hr of Incision: Yes Time Given: 13:16 Uriel Waller MD Mar 23, 2019 11:30
[2019-03-23] MEDS ORDERED: Alfentanil 2ml Inj ONE (11:36)
[2019-03-23] MEDS ORDERED: Lidocaine 1% MPF 10mg/ml 5ml ONE (11:37)
[2019-03-23] MEDS ORDERED: Sodium Chloride 10ml vial INJ ONE (11:37)
[2019-03-23] MEDS ORDERED: Iothalamate Meglumine 60% 30ML INJ ONE (12:36)
--- NOTE | 2019-03-23 12:58 | Pre-Procedure Note/Attestation ---
Pre-Procedure Note/Attestation Complete Prior to Procedure Planned Procedure: not applicable Procedure Narrative: TURBT RPG Indications for Procedure Pre-Operative Diagnosis: bladder Tumor Attestation I attest that I discussed the nature of the procedure; its benefits; risks and complications; and alternatives (and the risks and benefits of such alternatives ), prior to the procedure, with the patient (or the patient's legal franchise sales representative). I attest that, if there was a reasonable possibility of needing a blood transfusion, the patient (or the patient's legal franchise sales representative) was given the [facility] standardized written summary, pursuant to the Donnell Radha Blood Safety Act ([place] Health and Safety Code # 1645, as amended). I attest that I re-evaluated the patient just prior to the surgery and that there has been no change in the patient's H&P, except as documented below: Jose Perea MD Mar 23, 2019 12:57
[2019-03-23] MEDS ORDERED: Neostigmine 1mg/ml 10ml Inj ONE (13:00)
[2019-03-23] MEDS ORDERED: Zemuron 50mg/5ml Inj IV ONE (13:00)
[2019-03-23] MEDS ORDERED: Propofol 200mg/20ml IV ONE (13:00)
[2019-03-23] MEDS ORDERED: Sterile Water Irrig 1000ml IRRIG ONE (13:00)
[2019-03-23] MEDS ORDERED: NS Irrig 1000ml ONE (13:00)
[2019-03-23] MEDS ORDERED: LR 1000ml ONE (13:00)
[2019-03-23] MEDS ORDERED: NS Irrig 4000ml IRRIG ONE (13:00)
--- NOTE | 2019-03-23 13:05 | Brief Operative Note ---
Immediate Post Operative Note Operative Note Pre-op Diagnosis: bladder Tumor Procedure: TURBT RPG Post-op Diagnosis: same right lateral wall tumor with obstruction of the right ureter Post-op Diagnosis: same as pre-op Surgeon: Clark Perea Anesthesia: general Specimen: yes Complications: none Condition: stable Fluids: 500 Estimated Blood Loss: minimal Implant(s) used?: No Jose Perea MD Mar 23, 2019 13:05
[2019-03-23] MEDS ORDERED: Phenylephrine 10mg/ml Vial ONE (13:17)
--- NOTE | 2019-03-23 13:33 | Nephrology Progress Note ---
Assessment/Plan Problem List: (1) Renal failure (ARF), acute on chronic (2) Diabetic nephropathy (3) Bladder tumor (4) Hematuria (5) Anemia (6) Urinary retention (7) Elevated troponin I level Assessment Renal failure, Acute vs Chronic Hematuria Urinary retention UTI (urinary tract infection) Bladder tumor Anemia Plan due cysto Transfused- Cr lower- Uro eval noted Kidney KATHI noted per orders start Lopressor and Norvasc and PRN Hydralazine Hold Lisinopril in view of elevated Cr- adjust BP meds KATHI: Bilateral hydronephrosis as seen on the CT with no evidence for renal calculi The bladder is not adequately evaluated. The bladder needs to be evaluated with a full bladder on ultrasound. Alternatively cystoscopy is recommended Subjective ROS Limited/Unobtainable: No Objective Objective Last 24 Hour Vital Signs Date Time Temp Pulse Resp B/P (MAP) Pulse Ox O2 Delivery O2 Flow Rate FiO2 03/23/19 12:00 98.1 80 19 156/70 (98) 93 03/23/19 09:00 76 140/68 03/23/19 09:00 76 140/68 03/23/19 09:00 Room Air 03/23/19 07:57 98.0 76 18 140/68 (92) 93 03/23/19 04:00 98.2 73 19 148/62 (90) 91 03/23/19 00:00 98.4 71 20 148/61 (90) 94 03/22/19 21:25 76 134/56 03/22/19 21:00 Room Air 03/22/19 20:00 98.7 76 18 134/56 (82) 94 03/22/19 17:10 76 154/66 03/22/19 16:00 97.5 76 20 154/66 (95) 94 Intake and Output 03/22/19 03/23/19 19:00 07:00 Intake Total 1555 ml Output Total 2150 ml 1575 ml Balance -595 ml -1575 ml Intake Oral 600 ml IV Total 955 ml Output Urine Total 2150 ml 1575 ml # Voids 2 # Bowel Movements 1 Laboratory Tests 03/23/19 06:08: White Blood Count 8.9, Red Blood Count 3.00L, Hemoglobin 9.8L, Hematocrit 29.1L , Mean Corpuscular Volume 97, Mean Corpuscular Hemoglobin 32.6H, Mean Corpuscular Hemoglobin Concent 33.6, Red Cell Distribution Width 13.0, Platelet Count 314, Mean Platelet Volume 10.9H, Neutrophils (%) (Auto) 51.9, Lymphocytes (%) (Auto) 39.2, Monocytes (%) (Auto) 6.7, Eosinophils (%) (Auto) 1.7, Basophils (%) (Auto) 0.6, Prothrombin Time 10.7, Prothromb Time International Ratio 1.0, Activated Partial Thromboplast Time 25, Sodium Level 144, Potassium Level 4.3, Chloride Level 107, Carbon Dioxide Level 26, Anion Gap 11, Blood Urea Nitrogen 21H, Creatinine 1.7H, Estimat Glomerular Filtration Rate , Glucose Level 179H, Calcium Level 9.2, Total Bilirubin < 0.1L, Aspartate Amino Transf (AST/SGOT) 12L, Alanine Aminotransferase (ALT/SGPT) 14, Alkaline Phosphatase 58, Total Protein 7.4, Albumin 3.0L, Globulin 4.4, Albumin/Globulin Ratio 0.7L Height (Feet): 5 Height (Inches): 5.00 Weight (Pounds): 212 General Appearance: no apparent distress Objective no change Kasi Powell MD Mar 23, 2019 13:33
--- NOTE | 2019-03-23 13:38 | Immediate Post-Op Evaluation ---
Immediate Post-Op Evalulation Immediate Post-Op Evalulation Procedure: TURBT Date of Evaluation: Mar 23, 2019 Time of Evaluation: 14:27 IV Fluids: 800 LR Blood Products: 0 Estimated Blood Loss: 20 Urinary Output: 0 Blood Pressure Systolic: 165 Blood Pressure Diastolic: 80 Pulse Rate: 74 Respiratory Rate: 16 O2 Sat by Pulse Oximetry: 100 Temperature (Fahrenheit): 97.4 Pain Score (1-10): 2 Nausea: No Vomiting: No Complications 0 Patient Status: awake, reacts, patent, extubated, none Hydration Status: adequate Dru Gram Ancef IV Given Within 1 Hr of Incision: Yes Time Given: 13:16 Uriel Waller MD Mar 23, 2019 13:38
[2019-03-23] MEDS ORDERED: Glycopyrrolate 0.2mg/ml 1ml Vial ONE (14:00)
[2019-03-23] MEDS ORDERED: Naloxone 0.4mg/ml Inj ONE (14:03)
[2019-03-23] MEDS: cefTRIAXone 1 GM in D5W 55 ML IVPB SCH (15:46)
[2019-03-23] MEDS: D5 1/2NS w/KCl 20mEq 1,000 ML IV SCH (15:47)
[2019-03-23] MEDS: Epoetin Alfa-EPBX (NON ESRD)10,000 unit/ml vial SUBQ SCH (21:44)
[2019-03-23] MEDS: Levemir Flexpen SUBQ SCH (21:45)
[2019-03-24] VITALS: BP 128/58
[2019-03-24] MEDS: D5 1/2NS w/KCl 20mEq 1,000 ML IV SCH
[2019-03-24] MEDS: D5NS 1,000 ML IV SCH (03:32)
[2019-03-24 04:00] VITALS: BP 131/61
--- NOTE | 2019-03-24 05:00 | Progress Note ---
DATE: 03/23/2019 CARDIOLOGY PROGRESS NOTE SUBJECTIVE: The patient is status post urologic surgery with TURBT involving right lateral wall tumor in the bladder with obstruction of the right ureter. No hemodynamic complications were noted perioperatively. The patient remains in recovery. OBJECTIVE: VITAL SIGNS: Blood pressure 130/60, pulse 98, and respiratory rate 18. Earlier up to 170/74. LUNGS: Clear. CARDIAC: Regular. Normal S1 and S2. ABDOMEN: Slightly distended and tender. No guarding or rebound. EXTREMITIES: No edema. NEUROLOGIC: The patient is alert and interactive. LABORATORY DATA: Labs today notable for BUN 21 and creatinine 1.7. Albumin 3. Hemoglobin was 9.8, preop. IMPRESSION: 1. Bladder tumor. 2. Acute renal failure, improving. 3. Right ureter obstruction. PLAN: 1. Postop care. 2. Monitor hemoglobin. 3. Await pathology. 4. Titrate insulin dosing and antihypertensives. Lopez Montalvo M.D. DR: RENUKA JOB#: [id number] CC:
[2019-03-24] MEDS: NovoLOG Insulin Flexpen SUBQ SCH ×2 (06:17→11:36)
[2019-03-24 07:13] LABS: HEMATOCRIT 27.7 % (37.0-47.0); HEMOGLOBIN 9.3 G/DL (12.0-16.0); MEAN CORPUSCULAR VOLUME 97 FL (80-99); PLATELET COUNT 331 K/UL (150-450); RED BLOOD COUNT 2.87 M/UL (4.20-5.40); RED CELL DISTRIBUTION WIDTH 13.9 % (11.6-14.8); WHITE BLOOD COUNT 9.5 K/UL (4.8-10.8)
[2019-03-24 07:20] LABS: ANION GAP 8 mmol/L (5-15); BLOOD UREA NITROGEN 18 mg/dL (7-18); CALCIUM 8.9 MG/DL (8.5-10.1); CARBON DIOXIDE 27 MMOL/L (21-32); CHLORIDE 108 MMOL/L (98-107); CREATININE 1.7 MG/DL (0.55-1.30); POTASSIUM 3.8 MMOL/L (3.5-5.1); SODIUM 143 MMOL/L (136-145)
[2019-03-24 08:00] VITALS: BP_SYST 115; BP_SYST 133; BP_DIAS 51; BP_DIAS 63
[2019-03-24] MEDS: Docusate 100mg cap ORAL SCH (09:00)
--- NOTE | 2019-03-24 09:11 | 48 Hour Post Anesthesia Eval ---
Post Anesthesia Evaluation Procedure: TURBT Date of Evaluation: Mar 24, 2019 Time of Evaluation: 09:10 Blood Pressure Systolic: 135 0: 76 Pulse Rate: 72 Respiratory Rate: 20 Temperature (Fahrenheit): 97.6 O2 Sat by Pulse Oximetry: 98 Airway: patent Nausea: No Vomiting: No Pain Intensity: 2 Hydration Status: adequate Cardiopulmonary Status: stable Mental Status/LOC: patient returned to baseline Follow-up Care/Observations: n/a Post-Anesthesia Complications: none Follow-up care needed: N/A Lucas Hobson MD Mar 24, 2019 09:11
[2019-03-24] MEDS: Metoprolol 25mg tab ORAL SCH (09:24)
[2019-03-24 12:00] VITALS: BP 112/58
--- NOTE | 2019-03-24 12:39 | Nephrology Progress Note ---
Assessment/Plan Problem List: (1) Renal failure (ARF), acute on chronic (2) Diabetic nephropathy (3) Bladder tumor (4) Hematuria (5) Anemia (6) Urinary retention (7) Elevated troponin I level Assessment Renal failure, Acute vs Chronic Hematuria Urinary retention UTI (urinary tract infection) Bladder tumor Anemia Plan had cysto 03/23 Pre-op Diagnosis: bladder Tumor Procedure: TURBT RPG Post-op Diagnosis: same right lateral wall tumor with obstruction of the right ureter Transfused- Cr lower- Uro eval noted Kidney KATHI noted per orders start Lopressor and Norvasc and PRN Hydralazine Hold Lisinopril in view of elevated Cr- adjust BP meds KATHI: Bilateral hydronephrosis as seen on the CT with no evidence for renal calculi The bladder is not adequately evaluated. The bladder needs to be evaluated with a full bladder on ultrasound. Alternatively cystoscopy is recommended Subjective ROS Limited/Unobtainable: No Constitutional: Reports: malaise Objective Objective Last 24 Hour Vital Signs Date Time Temp Pulse Resp B/P (MAP) Pulse Ox O2 Delivery O2 Flow Rate FiO2 03/24/19 09:24 72 135/76 03/24/19 09:24 72 135/76 03/24/19 09:11 72 20 98 03/24/19 09:00 Room Air 03/24/19 08:00 97.4 81 18 133/51 (78) 94 03/24/19 04:00 97.2 86 18 131/61 (84) 97 03/24/19 00:00 97.2 87 18 128/58 (81) 97 03/23/19 21:42 98 130/60 03/23/19 21:00 Nasal Cannula 2.0 03/23/19 20:16 98 Nasal Cannula 3.0 32 03/23/19 20:00 97.7 98 18 130/60 (83) 94 03/23/19 17:08 76 160/73 03/23/19 16:00 98.0 76 18 160/73 (102) 98 03/23/19 15:20 97.9 73 17 163/71 97 Nasal Cannula 3 03/23/19 15:05 74 17 170/74 99 Nasal Cannula 3 03/23/19 14:50 69 22 174/78 98 Nasal Cannula 3 03/23/19 14:40 71 20 175/76 97 Nasal Cannula 3 03/23/19 14:30 75 18 160/68 98 Nasal Cannula 3 03/23/19 14:25 75 17 166/73 100 Simple Mask 6 03/23/19 14:20 74 18 161/71 100 Simple Mask 6 03/23/19 14:16 97.4 74 16 165/80 100 Simple Mask 6 03/23/19 14:14 74 16 100 03/23/19 14:12 98 Nasal Cannula 3.0 32 Intake and Output 03/23/19 03/24/19 19:00 07:00 Intake Total 2270 ml 1325 ml Output Total 1210 ml 1200 ml Balance 1060 ml 125 ml Intake Oral 540 ml 500 ml IV Total 1730 ml 825 ml Output Urine Total 1200 ml 1200 ml Estimated Blood Loss 10 ml Laboratory Tests 03/24/19 06:14: White Blood Count 9.5, Red Blood Count 2.87L, Hemoglobin 9.3L, Hematocrit 27.7L , Mean Corpuscular Volume 97, Mean Corpuscular Hemoglobin 32.3H, Mean Corpuscular Hemoglobin Concent 33.4, Red Cell Distribution Width 13.9, Platelet Count 331, Mean Platelet Volume 10.5H, Neutrophils (%) (Auto) , Lymphocytes (%) (Auto) , Monocytes (%) (Auto) , Eosinophils (%) (Auto) , Basophils (%) (Auto) , Differential Total Cells Counted 100, Neutrophils % (Manual) 61, Lymphocytes % ( Manual) 30, Monocytes % (Manual) 7, Eosinophils % (Manual) 2, Basophils % ( Manual) 0, Band Neutrophils 0, Platelet Estimate Adequate, Platelet Morphology Normal, Red Blood Cell Morphology Normal, Sodium Level 143, Potassium Level 3.8 , Chloride Level 108H, Carbon Dioxide Level 27, Anion Gap 8, Blood Urea Nitrogen 18, Creatinine 1.7H, Estimat Glomerular Filtration Rate , Glucose Level 88, Calcium Level 8.9, Magnesium Level 1.5L Height (Feet): 5 Height (Inches): 5.00 Weight (Pounds): 212 General Appearance: no apparent distress Objective no change Kasi Powell MD Mar 24, 2019 12:39
[2019-03-24] MEDS ORDERED: PHENAZOPYRIDIN100 MG ORAL (16:10)
[2019-03-24] MEDS ORDERED: METOPROLOL SUCC25 MG ORAL (16:11)
[2019-03-24] MEDS ORDERED: NORVASC5 MG ORAL (16:15)
[2019-03-24] MEDS ORDERED: LEVEMIR FL100 UNIT/1 SUBQ (16:16)
[2019-03-24] MEDS ORDERED: D5NS 1000ml IV ONE (16:47)
[2019-03-24] MEDS ORDERED: Tubing IV Secondary IV ONE (16:47)
--- NOTE | 2019-03-24 21:15 | Operative Note - Dictated ---
DATE OF OPERATION: 03/22/2019 PREOPERATIVE DIAGNOSES: 1. Hematuria. 2. Anemia. 3. Bladder tumor. POSTOPERATIVE DIAGNOSES: 1. Hematuria. 2. Anemia. 3. Bladder tumor. OPERATIONS: 1. Cystoscopy. 2. Retrograde pyelogram. 3. Transurethral resection of a very large right wall bladder tumor. OPERATED BY: Jose Perea M.D. ANESTHESIA: General. FINDINGS: Large tumor in the right lateral wall of the bladder. INDICATIONS FOR SURGERY: The patient was admitted to the hospital with anemia and hematuria. Hernandez catheter was placed. She was irrigated. Had blood transfusion. Her latest hematocrit is 29. CT urogram showed a thickened bladder with a large mass lesion in the right lateral wall. Treatment options were explained to her in great length including all potential complications. She signed a consent. PROCEDURE IN DETAIL: She was brought to the operating room, placed in lithotomy position, and prepped and draped in standard fashion. Under general anesthesia, cystoscope was introduced into the bladder and left ureter was cannulated. Retrograde were normal. Right ureter was buried underneath the tumor. Using resectoscope, tumor was slowly resected for quite a long period of time. All the tumor chips were finally removed including muscularis and removed for pathologic examination. Tumor bed was fulgurated and there was no evidence of active bleeding. Hernandez catheter was placed and left indwelling. The patient tolerated the procedure well. No evidence of complications. Jose Perea M.D. DR: CARLYN JOB#: [id number] CC:
--- NOTE | 2019-03-25 03:45 | Progress Note ---
DATE: 03/24/2019 INTERNAL MEDICINE PROGRESS NOTE SUBJECTIVE: The patient is postop day #1. Minimal bleeding noted with Hernandez catheter in place. Abdominal pain is minimal. She has a poor appetite, but is not nauseous or vomiting. OBJECTIVE: VITAL SIGNS: Stable. NECK: Supple. LUNGS: Clear. CARDIAC: Regular. Normal S1 and S2. ABDOMEN: Soft. Slightly tender in the suprapubic region. EXTREMITIES: No edema or calf tenderness. IMPRESSION: 1. Bladder tumor, pathology pending, status post removal. 2. Hematuria with anemia now status post one unit of packed red blood cells with stable blood counts. 3. Type 2 diabetes mellitus with controlled blood glucose. 4. Hypertensive heart disease with improved blood pressure control. 5. Acute on chronic renal failure, overall improved. PLAN: 1. Medications reviewed. 2. Outpatient followup discussed. 3. Dietary restrictions reviewed with the patient. 4. Final pathology will dictate for the course of therapy and possible further surgical and oncologic intervention. Lopez Montalvo M.D. DR: RENUKA JOB#: [id number] CC:
--- NOTE | 2019-03-25 15:53 | Cardiology Report ---
APPROVED REPORT EXAM: Two-dimensional and M-mode echocardiogram with Doppler and color Doppler. INDICATION Hypertensive Heart Disease M-Mode DIMENSIONS IVSd1.2 (0.7-1.1cm)Left Atrium (MM)3.8 (1.6-4.0cm) LVDd4.6 (3.5-5.6cm)Aortic Root2.4 (2.0-3.7cm) PWd1.0 (0.7-1.1cm)Aortic Cusp Exc.1.6 (1.5-2.0cm) LVDs2.7 (2.5-4.0cm) PWs1.3 cm Normal left ventricular chamber size, systolic function and wall motion. Left ventricular ejection fraction estimated to be 60-65 %. Mild left ventricular hypertrophy by 2-D. No evidence of pericardial effusion. Mild left atrial enlargement. Right atrial size at upper limits of normal. Right ventricular chamber size is within normal limits. Focal aortic valve sclerosis with adequate cusp excursion. Thickened mitral valve leaflets with normal excursion. Mitral annulus and aortic root calcification. Pulmonic valve not well visualized. Normal tricuspid valve structure. IVC at normal size with physiologic collapse. A color flow and spectral Doppler study was performed and revealed: No aortic regurgitation. Mild mitral regurgitation. Mitral diastolic velocities suggest reduced left ventricular relaxation c/w mild LV diastolic dysfunction (Grade I). Trace to mild tricuspid regurgitation. Tricuspid systolic velocities suggests peak right ventricular systolic pressure of 30 mmHg.
--- NOTE | 2019-03-26 20:07 | Discharge Summary ---
Discharge Summary Discharge Summary _ DATE OF ADMISSION: 03/18/2019 DATE OF DISCHARGE: 03/24/2019 DISCHARGED BY: Dr. Lopez Montalvo CONSULTANTS: Dr. Jose Powell BRIEF HOSPITAL COURSE: Patient is a pleasant 78-year-old [place] female, who was seen by her urologist several days prior to admission and was noted to have hematuria. A catheter was placed and further diagnostic studies were planned. She presented to emergency room due to worsening hematuria that has been unremitting. She did not have any nausea, vomiting or abdominal pain. No dizziness. She has medical history significant for hypertension, type 2 diabetes mellitus, history of uterine fibroids status post myomectomy, Parkinson's disease, hypothyroidism , and glaucoma. On evaluation at the ED, blood pressure was elevated to 185/80. Blood work showed WBC 9.7, hemoglobin 8.2 and hematocrit 25.5. There were no electrolyte abnormalities. Urinalysis showed 4+ protein, 1+ ketone, 5+ blood, too many to count urine RBC, 30-40 urine WBC, +3 leukocyte esterase, negative nitrite. CT scan of the abdomen and pelvis was notable for a bladder mass with distended irregular bladder wall. She was then admitted for evaluation of anemia due to hematuria, bladder mass, possible tumor, renal failure. Patient was then admitted to medical floor. She was given IV hydration. She was started on IV ceftriaxone. Hernandez catheter was monitored for any signs of bleeding. Serial hemoglobin checked. Hemoglobin dropped to 7.5. She was given 1 unit packed RBC blood transfusion. She was given insulin coverage by sliding scale. Urologist was consulted. Patient was continued on IV antibiotic. She was given Lopressor and Norvasc for blood pressure control. Lisinopril was placed on hold due to elevated creatinine. Renal ultrasound showed bilateral hydronephrosis with no evidence of renal calculi. Bladder not adequately evaluated. Bladder needs to be evaluated with full bladder ultrasound, alternatively cystoscopy recommended. Preop clearance was given. On 03/23/2019, she underwent cystoscopy with retrograde pyelogram with transurethral resection of a very large right wall bladder tumor by Dr. Jose Perea. The patient tolerated procedure well. There was no evidence of complications. She was given postop care. There was minimal bleeding noted with Hernandez catheter. Abdominal pain was minimal. She had poor appetite but was not nauseous nor vomiting. She was then cleared for discharge home. Pathology resolved showed invasive high-grade papillary urothelial carcinoma; muscularis mucosa present, not involved. FINAL DIAGNOSES: Invasive high-grade papillary urothelial carcinoma Status post cystoscopy with retrograde pyelogram and transurethral resection of large right wall bladder tumor Anemia secondary to hematuria Type 2 diabetes mellitus with controlled blood glucose Hypertensive heart disease Acute on chronic renal failure Drop in hemoglobin required blood transfusion Low TSH suggestive of abnormal thyroid function B12 deficiency Moderate protein calorie malnutrition DISPOSITION: PR home with home health DISCHARGE MEDICATIONS: Refer to Discharge Medication List. DISCHARGE INSTRUCTIONS: Follow-up in a week. I have been assigned to complete a discharge summary on this account, I was not involved with the patient's management.--JEM Khanna Jacqueline Robles NP Mar 26, 2019 20:07
--- NOTE | 2019-03-30 17:00 | Progress Note ---
DATE: 03/20/2019 INTERNAL MEDICINE PROGRESS NOTE SUBJECTIVE: The patient has slight abdominal pain. Continues to have hematuria. Hernandez catheter in place. Blood pressure parameters were elevated today. Vitals have been reviewed. The case was discussed with staff and Dr. Powell. There is no change in review of systems. PHYSICAL EXAMINATION: VITAL SIGNS: Blood pressure 169/69, heart rate 75, respiratory rate 20, afebrile. LUNGS: Clear. CARDIAC: Regular. ABDOMEN: Soft. No focal tenderness. Mild suprapubic tenderness. EXTREMITIES: No edema. IMPRESSION: 1. Bladder mass with hematuria. 2. Anemia, status post transfusion. 3. Hypertensive heart disease. 4. Type 2 diabetes mellitus. 5. B12 deficiency. PLAN: 1. Monitor hemoglobin. 2. No antiplatelet or anticoagulant therapy. 3. Vitamin B12 supplement. 4. Cautious titration of antihypertensives. 5. Await Urology follow up for definitive intervention. 6. Continue empiric antibiotics and IV fluid hydration. Lopez Montalvo M.D. DR: SHARON JOB#: [id number] CC:
== END 2019-03-24 16:48 | disposition home health service (06) | DRG 669 ==
LOC: EMR 11:18 → 4E 12:48 → EDBEDREQ 12:50 → EDBEDREQSVC 12:50 → EDBEDREQ 13:44 → 4E 14:58
PROC: 30233N1 Transfusion of Nonautologous Red Blood Cells into Peripheral Vein, Percutaneous Approach (ICD-10-PCS; principal; 2019-03-19)
PROC: 0TBB8ZZ Excision of Bladder, Via Natural or Artificial Opening Endoscopic (ICD-10-PCS; 2019-03-22)
DX: C67.2 Malignant neoplasm of lateral wall of bladder (principal); N17.9 Acute kidney failure, unspecified; E44.0 Moderate protein-calorie malnutrition; N39.0 Urinary tract infection, site not specified; R31.0 Gross hematuria; D50.0 Iron deficiency anemia secondary to blood loss (chronic); I13.10 Hypertensive heart and chronic kidney disease without heart failure, with stage 1 through stage 4 chronic kidney disease, or unspecified chronic kidney disease; E03.9 Hypothyroidism, unspecified; G20 Parkinson's disease; H40.9 Unspecified glaucoma; R33.9 Retention of urine, unspecified; E53.8 Deficiency of other specified B group vitamins; E11.22 Type 2 diabetes mellitus with diabetic chronic kidney disease; N18.9 Chronic kidney disease, unspecified
CPT/HCPCS: 36415; 71045; 74176; 76770; 80048; 80053; 80061; 81003; 82607; 82728; 82746; 82962; 83036; 83540; 83550; 83735; 83880; 84100; 84443; 84550; 85007; 85025; 85610; 85730; 86140; 86850; 86900; 86901; 86920; 87086; 93306; 94003; 94150; 96365; 99285; J1815; J2250; J2370; J2405; J2710; J2765; J3490; J8499; S5561

== ENCOUNTER 2019-06-01 07:48 | Day surgery (SDC) | payer MEDICARE, OTHER ==
[2019-06-01] VITALS (11 sets, daily range): BP systolic 137–172; BP diastolic 59–88
[~2019-06-01] VITALS: Ht 167.6 cm; Wt 90.7 kg
[~2019-06-01 07:48] MED LIST: ACTOS45 MG ORAL; COREG CR80 MG ORAL; LANTUS SOL100 UNIT/1 SUBQ; LEVEMIR FL100 UNIT/1 SUBQ; MACROBID100 MG ORAL; METOPROLOL SUCC25 MG ORAL; NORVASC5 MG ORAL; PHENAZOPYRIDIN100 MG ORAL
--- NOTE | 2019-06-01 08:20 | NUR ---
IV LR WAS STARTED BY WILMER COOK RN. NO S/S OF INFILTRATION.
--- NOTE | 2019-06-01 08:40 | Pre-Procedure Note/Attestation ---
Pre-Procedure Note/Attestation Complete Prior to Procedure Planned Procedure: not applicable Procedure Narrative: TURBT RPG Indications for Procedure Pre-Operative Diagnosis: bladder Cancer Attestation I attest that I discussed the nature of the procedure; its benefits; risks and complications; and alternatives (and the risks and benefits of such alternatives ), prior to the procedure, with the patient (or the patient's legal sales representative [employer]). I attest that, if there was a reasonable possibility of needing a blood transfusion, the patient (or the patient's legal sales representative [employer]) was given the [facility] standardized written summary, pursuant to the Donnell Radha Blood Safety Act ([place] Health and Safety Code # 1645, as amended). I attest that I re-evaluated the patient just prior to the surgery and that there has been no change in the patient's H&P, except as documented below: Jose Perea MD Jun 01, 2019 08:40
[2019-06-01] MEDS ORDERED: SINEMET 25-1001 EAC1 ORAL (08:51)
[2019-06-01] MEDS ORDERED: ceFAZolin sod 1 GM in NS 55 ML IVPB ONE (09:00)
[2019-06-01] MEDS ORDERED: LR 1000ml 1,000 ML IVLG SCH (09:37)
--- NOTE | 2019-06-01 09:41 | Anethesia Preoperative Eval ---
Anesthesia Pre-op PMH/ROS General Date of Evaluation: Jun 01, 2019 Anesthesiologist: Christin ASA Score: ASA 3 Mallampati Score Class I : Soft palate, uvula, fauces, pillars visible Class II: Soft palate, uvula, fauces visible Class III: Soft palate, base of uvula visible Class IV: Only hard plate visible Mallampati Classification: Class III Surgeon: Eliazar Diagnosis: Abd Pain Surgical Procedure: TURBT Anesthesia History: none Family History: no anesthesia problems Allergies: Coded Allergies: No Known Allergies (Unverified , 03/18/19) Medications: see eMAR Patient NPO?: Yes Past Medical History Cardiovascular: Reports: HTN Gastrointestinal/Genitourinary: Reports: other - Bladder Tumor Neurologic/Psychiatric: Reports: other - Parkinsons Endocrine: Reports: DM, hypothyroidism HEENT: Reports: cataract (L), cataract (R), glaucoma Other: obesity PSxH Narrative: Bladder Sx, Cataract Sx Anesthesia Pre-op Phys. Exam Physician Exam Last Vital Signs Date Time Temp Pulse Resp B/P (MAP) Pulse Ox O2 Delivery O2 Flow Rate FiO2 06/01/19 08:34 97.6 80 20 157/67 97 Room Air Constitutional: NAD Neurologic: CN 2-12 intact Cardiovascular: RRR Respiratory: CTA Gastrointestinal: S/NT/ND Airway Exam Mallampati Score: Class IV MO: limited ROM: limited Teeth: missing Dentures: upper, lower Anesthesia Pre-op A/P Risk Assessment & Plan Assessment: ASA 3 Plan: GA, SED, GlideScope Go Status Change Before Surgery: No Pre-Antibiotics Dru Grams Ancef IV Given Within 1 Hr of Incision: Yes Time Given: 10:31 Uriel Waller MD Jun 01, 2019 09:41
[2019-06-01] MEDS ORDERED: oxyCODONE HCL/Acetaminophen 5/325mg ORAL PRN (09:45)
[2019-06-01] MEDS ORDERED: fentaNYL 100 mcg/2 mL IV PRN (09:45)
[2019-06-01] MEDS ORDERED: Ketorolac 30mg Inj IV PRN ×2 (09:45)
[2019-06-01] MEDS ORDERED: DiphenhydrAMINE 50mg/ml Inj IVP PRN (09:45)
[2019-06-01] MEDS ORDERED: Labetalol 5mg/ml 20ml vial IV PRN (09:45)
[2019-06-01] MEDS ORDERED: Metoclopramide 10mg/2ml Inj IVP PRN (09:45)
[2019-06-01] MEDS ORDERED: Acetaminophen (Non formulary) 100 ML IV ONE (09:45)
[2019-06-01] MEDS ORDERED: HYDROcodone/Acetamin 7.5/325 tab ORAL PRN (09:45)
[2019-06-01] MEDS ORDERED: Midazolam 2mg/2ml Inj IVP PRN (09:45)
[2019-06-01] MEDS ORDERED: LORazepam Inj 2mg/ml 1ml IV PRN (09:45)
[2019-06-01] MEDS ORDERED: HYDROcodone/Acetamin 5/325 tab ORAL PRN ×2 (09:45→18:01)
[2019-06-01] MEDS ORDERED: Meperidine 50mg/ml Inj(FOR RIGORS ONLY) IVP PRN (09:45)
[2019-06-01] MEDS ORDERED: Hydromorphone 0.5mg/0.5ml inj IVP PRN (09:45)
[2019-06-01] MEDS ORDERED: Atropine Sulfate 0.4mg/ml inj IVP PRN (09:45)
[2019-06-01] MEDS ORDERED: Glycopyrrolate 0.2mg/ml 1ml Vial ONE ×2 (09:47→10:55)
[2019-06-01] MEDS ORDERED: NS Irrig 1000ml ONE (10:00)
[2019-06-01] MEDS ORDERED: Propofol 200mg/20ml IV ONE (10:00)
[2019-06-01] MEDS ORDERED: Lidocaine 1% MPF 10mg/ml 5ml ONE (10:00)
[2019-06-01] MEDS ORDERED: Dexamethasone 4mg/ml vial ONE (10:00)
--- NOTE | 2019-06-01 10:06 | Immediate Post-Op Evaluation ---
Immediate Post-Op Evalulation Immediate Post-Op Evalulation Procedure: TURBT Date of Evaluation: Jun 01, 2019 Time of Evaluation: 11:44 IV Fluids: 500 LR Blood Products: 0 Estimated Blood Loss: 50 Urinary Output: 100 Blood Pressure Systolic: 172 Blood Pressure Diastolic: 88 Pulse Rate: 83 Respiratory Rate: 16 O2 Sat by Pulse Oximetry: 100 Temperature (Fahrenheit): 98.4 Pain Score (1-10): 2 Nausea: No Vomiting: No Complications 0 Patient Status: awake, reacts, patent, extubated, none Hydration Status: adequate Dru Grams Ancef IV Given Within 1 Hr of Incision: Yes Time Given: 10:31 Uriel Waller MD Jun 01, 2019 10:06
[2019-06-01] MEDS ORDERED: Rocuronium Bromide 50mg/5ml Inj IV ONE (10:09)
[2019-06-01] MEDS ORDERED: Iothalamate Meglumine 60% 30ML INJ ONE (10:13)
[2019-06-01] MEDS ORDERED: Sodium Chloride 10ml vial INJ ONE (10:20)
[2019-06-01] MEDS ORDERED: Midazolam 2mg/2ml Inj ONE (10:23)
[2019-06-01] MEDS ORDERED: fentaNYL 100 mcg/2 mL IV ONE (10:23)
[2019-06-01] MEDS ORDERED: Sterile Water For Irrig 2000ml IRRIG ONE ×5 (10:41→11:11)
[2019-06-01] MEDS ORDERED: Neostigmine 1mg/ml 10ml Inj ONE (10:55)
--- NOTE | 2019-06-01 11:16 | Brief Operative Note ---
Immediate Post Operative Note Operative Note Pre-op Diagnosis: bladder Cancer Procedure: TURBT RPG Post-op Diagnosis: same Surgeon: Clark perea Anesthesia: general Specimen: yes Complications: none Condition: stable Fluids: 500 Estimated Blood Loss: minimal Implant(s) used?: No Jose Perea MD Jun 01, 2019 11:16
--- NOTE | 2019-06-01 11:26 | 48 Hour Post Anesthesia Eval ---
Post Anesthesia Evaluation Procedure: TURBT Date of Evaluation: Jun 01, 2019 Time of Evaluation: 13:54 Blood Pressure Systolic: 162 0: 76 Pulse Rate: 74 Respiratory Rate: 18 Temperature (Fahrenheit): 98.5 O2 Sat by Pulse Oximetry: 98 Airway: patent Nausea: No Vomiting: No Pain Intensity: 2 Cardiopulmonary Status: Stable Follow-up Care/Observations: 0 Post-Anesthesia Complications: 0 Follow-up care needed: ready to discharge Uriel Waller MD Jun 01, 2019 11:26
--- NOTE | 2019-06-01 13:34 | Diagnostic Imaging Report ---
INDICATION: Pain, intraoperative TECHNIQUE: Intraoperative imaging Fluoroscopy time: 27 seconds Total dose: 0.62382 mGym2 Total number of images: 4 COMPARISON: None FINDINGS: Intraoperative images demonstrate cannulation and opacification of dilated bilateral distal ureters. IMPRESSION: Intraoperative imaging, as described
--- NOTE | 2019-06-01 18:00 | Operative Note - Dictated ---
DATE OF OPERATION: 06/01/2019 PREOPERATIVE DIAGNOSES: 1. Bladder cancer. 2. Second look procedure. POSTOPERATIVE DIAGNOSES: 1. Bladder cancer. 2. Second look procedure. OPERATIONS: 1. Transurethral section right lateral wall of the bladder. 2. Bilateral retrograde pyelogram. MOTOR VEHICLE DISPATCHER: Jose Perea M.D. ANESTHESIA: General. FINDINGS: Some healing tissue from previous TURBT. INDICATIONS FOR SURGERY: The patient had massive tumor in the right lateral wall and underwent TURBT followed by BCG therapy. Today she was scheduled for a second-look procedure and retrograde pyelogram. She was brought to the operating room, placed in lithotomy position, prepped and draped in standard fashion. Under general anesthesia, cystoscope was introduced into the bladder. Bilateral pyelograms were done showing dilation of the distal ureters without any evidence of obstruction or tumors. After that transurethral resection large area of the previous tumor was done all the way to the muscles. Tissue was sent for pathologic examination and The patient tolerated procedure well. No evidence of complications. Jose Perea M.D. DR: Refugio JOB#: [id number] CC:
[2019-06-01] MEDS ORDERED: Tylenol #3 tab (300mg/30mg) ORAL PRN (18:01)
[2019-06-01] MEDS ORDERED: HYDROmorphone 1mg/ml Carpuject SUBQ PRN (18:01)
[2019-06-01] MEDS ORDERED: D5 1/2NS 1,000 ML IV SCH (18:01)
== END 2019-06-01 13:50 | disposition home or self-care (01) ==
LOC: SUR 07:48
DX: C67.2 Malignant neoplasm of lateral wall of bladder (principal); I10 Essential (primary) hypertension; E11.9 Type 2 diabetes mellitus without complications; E03.9 Hypothyroidism, unspecified; E66.9 Obesity, unspecified; Z68.32 Body mass index [BMI] 32.0-32.9, adult
CPT/HCPCS: 52005; 52240; 74420; 76000; 82962; C1769; J0690; J1100; J2250; J2405; J2704; J2710; J3010; Q9961; 94003; 94150